=== PATIENT | female | born 2005 | race Caucasian/White ===

== ENCOUNTER 2024-08-04 07:03 | Emergency (ER) | payer OTHER, SELFPAY ==
[2024-08-04] MEDS ORDERED: Metoclopramide HCl 10 MG (2 mL) VIAL ONE (07:31)
[2024-08-04] MEDS ORDERED: diphenhydrAMINE 50 MG/ML VIAL ONE (07:31)
[2024-08-04 07:41] LABS: #Basophils Less than 0.03 10x3/uL (0.0-0.2); %Basophils 0.3 % (0.0-1.0); %Eosinophils 2.3 % (0.0-10.0); %Lymphocytes 29.7 % (28.0-48.0); %Monocytes 8.7 % (0.0-4.0); %Neutrophils 58.8 % (31.0-61.0); Hematocrit 42.5 % (36.0-47.0); Hemoglobin 14.7 g/dL (12.0-16.0); Mean Corpuscular HGB CONC 34.6 g/dL (32.0-36.0); Mean Corpuscular Hemoglobin 31.7 pg (25.0-35.0); Mean Corpuscular Volume 91.6 fL (78.0-98.0); Mean Platelet Volume 9.2 fL (7.4-10.4); Platelet Count 312 10x3/uL (130-400); RBC Distribution Width 12.4 % (11.5-14.5); Red Blood Cell (RBC) Count 4.64 mill/uL (4.00-5.20)
[2024-08-04 07:54] LABS: BHCG - Serum Negative (NEGATIVE); Pregs Control Background? CLEAR/WHITE (CLR/WHITE); Pregs Control Bar Appear? YES (CONTROL BAR)
[2024-08-04 07:56] LABS: Anion Gap 14 mmol/L (10-20); BUN (Urea Nitrogen) 13 mg/dL (8.4-21.0); Calc. Creatinine Clearance 0 mL/min (70-130); Calcium 9.6 mg/dL (7.8-10.44); Carbon Dioxide 23 mmol/L (22-29); Chloride 106 mmol/L (98-107); Estimated GFR 109; Glucose 91 mg/dL (70-105); Potassium 4.2 mmol/L (3.5-5.1); Sodium 139 mmol/L (136-145)
[2024-08-04] MEDS ORDERED: Acetaminophen 500 MG TAB ONE (08:06)
[2024-08-04] MEDS ORDERED: Ketorolac Tromethamine 30 MG (1 mL) VIAL ONE (08:06)
[2024-08-04] MEDS ORDERED: Midazolam HCl 2 mg/2 ml Vial ONE (08:27)
[2024-08-04 11:59] LABS: CSF Source CSF; CSF WBC/NonHematics Count-Man 0 /cu.mm (0-5); CSF, Glucose 55 mg/dl (40-70); CSF, Protein 27.5 mg/dL (15-40); Clarity Clear (Clear); Tube # 4
[2024-08-04 12:00] LABS: CSF RBC Count - Manual 7 /cu.mm (None Seen)
[2024-08-04 12:34] LABS: Color Of CSF Supernatant COLORLESS (Colorless); Unspun CSF Color COLORLESS (Colorless)
[2024-08-04 12:35] LABS: Tube # 1
== END 2024-08-04 13:32 | disposition home or self-care (01) ==
LOC: ERS 07:03
DX: R51.9 Headache, unspecified (principal); Z55.0 Illiteracy and low-level literacy
CPT/HCPCS: 62270; 70450; 80048; 82945; 84157; 84703; 85025; 87070; 87205; 89051; 96374; 96375; J1200; J1885; J2250; J2765

== ENCOUNTER 2024-09-03 08:14 | Outpatient (CLI) | payer OTHER ==
[2024-09-03] MEDS ORDERED: Magnevist 469MG/ML 20 ML VIAL ONE (11:09)
== END 2024-09-03 08:15 | disposition home or self-care (01) ==
LOC: MRI 08:14
PROVIDERS: ATTEND Psychiatry & Neurology Neurology
DX: G93.2 Benign intracranial hypertension (principal); J34.89 Other specified disorders of nose and nasal sinuses; H74.8X3 Other specified disorders of middle ear and mastoid, bilateral
CPT/HCPCS: 70553; 76376